=== PATIENT | female | born 1935 | race Two or more races ===

== ENCOUNTER 2017-12-09 07:30 | Outpatient (CLI) | payer OTHER | END 2017-12-09 07:33 | disposition home or self-care (01) | LOC: SONOGRAMA 07:30 | DX: E04.1 Nontoxic single thyroid nodule (principal) ==

== ENCOUNTER 2018-02-24 08:12 | Outpatient (CLI) | payer OTHER | END 2018-02-24 08:14 | disposition home or self-care (01) | LOC: SONOGRAMA 08:12 | DX: E04.1 Nontoxic single thyroid nodule (principal) ==